=== PATIENT | female | born 2000 | race Caucasian/White ===

== ENCOUNTER → 2023-12-10 | Outpatient (CLI) | payer OTHER ==
[2023-12-10 11:33] LABS: Basophils # (auto) 0.1 10 ^3/uL (0-0.2); Basophils % (auto) 0.8 % (0.0-2.0); Eosinophils # (auto) 0.1 10 ^3/uL (0-0.8); Eosinophils % (auto) 0.7 % (0.0-7.0); Hematocrit 39.9 % (36.0-46.0); Hemoglobin 13.5 g/dL (12.2-16.2); Lymphocytes # (auto) 1.6 10 ^3/uL (0.4-5.4); Lymphocytes % (auto) 18.1 % (10.0-50.0); Mean Corpuscular Hemoglobin 29.4 pg (28.0-32.0); Mean Corpuscular Hgb Conc. 33.9 g/dL (32.0-36.0); Mean Corpuscular Volume 86.7 fL (80.0-100.0); Monocytes # (auto) 0.7 10 ^3/uL (0-1.3); Neutrophils # (auto) 6.5 10 ^3/uL (1.6-8.6); Neutrophils % (auto) 72.4 % (37.0-80.0); Nucleated Red Blood Cells % 0.1 %; Red Cell Distribution Width 14.7 % (11.8-14.3)
[2023-12-11 07:07] LABS: RPR Non Reactive (Non Reactive)
[2023-12-11 23:06] LABS: Chlamydia Trachomatis, NAA Negative (Negative); Neisseria gonorrhoeae, NAA Negative (Negative)
== END | disposition home or self-care (01) ==
LOC: LAB 11:09
PROVIDERS: ATTEND Obstetrics & Gynecology
DX: Z11.3 Encounter for screening for infections with a predominantly sexual mode of transmission (principal)
CPT/HCPCS: 36415; 85025; 86592

== ENCOUNTER 2024-01-09 23:47 | Inpatient (IN) | payer OTHER ==
[~2024-01-09] VITALS: Ht 157.5 cm; Wt 78.5 kg
[2024-01-10 00:55] LABS: Fern Testing Negative
[2024-01-10] MEDS ORDERED: TERBUTALINE SULFATE 1 MG/ML 1ML VIAL SC PRN (01:30)
[2024-01-10] MEDS ORDERED: LIDOCAINE 2%HCL (LOCAL ANESTH.) INJ 20ML MDV IJ PRN (01:30)
[2024-01-10] MEDS ORDERED: BUTORPHANOL TARTRATE 2 MG/1 ML VIAL IV PRN ×2 (01:30)
[2024-01-10] MEDS ORDERED: miSOPROStol 50 MCG per PRE-CUT 1/2 TAB PO PRN (01:30)
[2024-01-10 02:04] LABS: Basophils # (auto) 0.1 10 ^3/uL (0-0.2); Basophils % (auto) 0.6 % (0.0-2.0); Eosinophils # (auto) 0.1 10 ^3/uL (0-0.8); Eosinophils % (auto) 0.9 % (0.0-7.0); Hematocrit 42.5 % (36.0-46.0); Hemoglobin 14.6 g/dL (12.2-16.2); Lymphocytes # (auto) 2.5 10 ^3/uL (0.4-5.4); Lymphocytes % (auto) 26.7 % (10.0-50.0); Mean Corpuscular Hemoglobin 29.7 pg (28.0-32.0); Mean Corpuscular Hgb Conc. 34.2 g/dL (32.0-36.0); Mean Corpuscular Volume 86.8 fL (80.0-100.0); Monocytes # (auto) 0.8 10 ^3/uL (0-1.3); Monocytes % (auto) 8.2 % (0.0-12.0); Neutrophils # (auto) 5.9 10 ^3/uL (1.6-8.6); Neutrophils % (auto) 63.6 % (37.0-80.0); Nucleated Red Blood Cells % 0.1 %; Red Blood Cells 4.89 10^6/uL (4.0-5.20); Red Cell Distribution Width 14.4 % (11.8-14.3); White Blood Cell 9.3 10^3/uL (4.4-10.8)
[2024-01-10 02:15] LABS: Urine Bacteria NONE SEEN /hpf (None Seen); Urine Blood 2+ /uL (Negative); Urine Budding Yeast MODERATE /hpf (None Seen); Urine Clarity HAZY (Clear); Urine Protein, UAD Negative (Negative); Urine Specific Gravity 1.015 (1.001-1.035); Urine Urobilinogen Normal (Negative); Urine WBC 17 /hpf (0 - 5)
[2024-01-10 02:17] LABS: Urine Color Straw (Yellow)
[2024-01-10 02:21] LABS: INR 0.95 (0.9-1.15); Partial Thromboplastin Time 32.7 SEC (24.5-34.5)
[2024-01-10 02:26] LABS: Amphetamine Screen, Urine Neg (NEGATIVE); Barbiturate Scree,Urine Neg (NEGATIVE); Benzodiazephine Screen, Urine Neg (NEGATIVE); Cannabinoid Screen, Urine Neg (NEGATIVE); Cocaine Screen, Urine Neg (NEGATIVE); Opiate Scree,Urine Neg (NEGATIVE); Phencyclidine Screen, Urine Neg (NEGATIVE)
[2024-01-10 02:31] LABS: Albumin 4.1 g/dL (3.2-4.8); Alkaline Phosphatase 148 U/L (46-116); Anion Gap 9 (5-15); Aspartate Aminotransferase 16 U/L (13-40); Bilirubin, Total 0.5 mg/dL (0.2-1.0); Blood Urea Nitrogen 6 mg/dL (9-23); Calcium 9.3 mg/dL (8.7-10.4); Carbon Dioxide 22 mmol/L (20-30); Chloride 106 mmol/L (98-107); Glucose 93 mg/dL (74-106); Potassium 3.8 mmol/L (3.5-5.1); Sodium 137 mmol/L (136-145); Total Protein 6.7 g/dL (5.7-8.2)
[2024-01-10] MEDS: LACTATED RINGER'S 1,000 ML IV SCH (02:37)
[2024-01-10 02:54] LABS: Alanine Aminotransferase < 9 U/L (7-40)
[2024-01-10] MEDS: WITCH HAZEL-GLYCERIN PAD TOP PRN (03:39)
[2024-01-10] MEDS: DERMOPLAST 60ML BOTTLE TOP PRN (03:39)
[2024-01-10] MEDS: PHISODERM TOP SOLN 240ML BTL TOP PRN (03:39)
[2024-01-10] MEDS ORDERED: ePHEDrine SULFATE 50 MG/ML AMP IV ONE (04:00)
[2024-01-10] MEDS ORDERED: NALOXONE HCL 0.4 MG/ML VIAL IV ONE (04:00)
[2024-01-10] MEDS: LACTATED RINGER'S 1,000 ML IV ONE (04:57)
[2024-01-10] MEDS ORDERED: PREN27TA7 OR (05:43)
[2024-01-10] MEDS: ROPIVACAINE HCL 200 ML ONE ×2 (10:19→21:08)
[2024-01-10] MEDS: SODIUM CHLORIDE 0.9% 200 ML IUPC ONE (11:46)
[2024-01-10] MEDS: SODIUM CHLORIDE 0.9% 1,000 ML IUPC SCH (11:46)
[2024-01-10] MEDS: LACT. RINGERS/OXYTOCIN 20UNITS 1,000 ML IV SCH (15:11)
[2024-01-10] MEDS: ceFAZolin 1GM/50ML 50 ML IV SCH (16:34)
[2024-01-10] MEDS: LACT. RINGERS/OXYTOCIN 20UNITS 500 ML IV ONE ×2 (17:59→21:07)
[2024-01-10] MEDS: METHYLERGONOVINE MALEATE 0.2 MG/ML AMP IM ONE ×2 (18:12→21:08)
[2024-01-10] MEDS: miSOPROStol 100 mcg TAB PR PRN (18:12)
[2024-01-10] MEDS: miSOPROStol 100 mcg TAB SL PRN (18:13)
[2024-01-10] MEDS ORDERED: ONDANSETRON ODT 4 MG TAB PO PRN (19:45)
[2024-01-10] MEDS ORDERED: ACETAMINOPHEN 325 MG TAB PO PRN (19:45)
[2024-01-10 20:45] VITALS: BP 128/76; PULSE 72; RESP 20; TEMP 98.6; O2SAT 98
[2024-01-10] MEDS: IBUPROFEN 600 MG TAB PO PRN (20:46)
[2024-01-10] MEDS: miSOPROStol 100 mcg TAB ONE (21:08)
[2024-01-10] MEDS: DOCUSATE SOD 100 MG CAP PO SCH (22:38)
[2024-01-10 23:00] VITALS: BP 103/56; PULSE 90; RESP 16; TEMP 98.7; O2SAT 97
[2024-01-11 03:00] VITALS: BP 104/62; PULSE 86; RESP 16; TEMP 98.6; O2SAT 96
[2024-01-11 07:00] VITALS: BP 105/60; PULSE 86; RESP 16; TEMP 98.7; O2SAT 97
[2024-01-11 11:00] VITALS: BP 106/56; PULSE 89; RESP 17; TEMP 98.3; O2SAT 97
[2024-01-11 15:00] VITALS: BP 106/64; PULSE 89; RESP 17; TEMP 97.8; O2SAT 98
[2024-01-11 19:25] VITALS: BP 108/56; PULSE 67; RESP 18; TEMP 98; O2SAT 100
[2024-01-11 23:00] VITALS: BP 108/64; PULSE 68; RESP 20; TEMP 98.7; O2SAT 96
[2024-01-12 03:00] VITALS: BP 100/50; PULSE 70; RESP 18; TEMP 97.8; O2SAT 98
[2024-01-12 07:00] VITALS: BP 106/70; PULSE 75; RESP 16; TEMP 98.7; O2SAT 96
[2024-01-13 06:06] LABS: RPR Non Reactive (Non Reactive)
[2024-01-13 18:06] LABS: Treponema pallidum Ab (FTA-Ab) Non Reactive (Non Reactive)
== END 2024-01-12 09:22 | disposition home or self-care (01) | DRG 807 ==
LOC: LDRP 23:47 → OBSVTOIN 01-10 01:19 → LDRP 01-10 04:09
PROVIDERS: ADMIT Obstetrics & Gynecology; ATTEND Obstetrics & Gynecology
PROC: 10E0XZZ Delivery of Products of Conception, External Approach (ICD-10-PCS; principal; 2024-01-10)
PROC: 0KQM0ZZ Repair Perineum Muscle, Open Approach (ICD-10-PCS; 2024-01-10)
PROC: 10H07YZ Insertion of Other Device into Products of Conception, Via Natural or Artificial Opening (ICD-10-PCS; 2024-01-10)
PROC: 3E0R3BZ Introduction of Anesthetic Agent into Spinal Canal, Percutaneous Approach (ICD-10-PCS; 2024-01-10)
PROC: 00HU33Z Insertion of Infusion Device into Spinal Canal, Percutaneous Approach (ICD-10-PCS; 2024-01-10)
DX: O42.92 Full-term premature rupture of membranes, unspecified as to length of time between rupture and onset of labor (principal); Z37.0 Single live birth; O70.1 Second degree perineal laceration during delivery; O77.0 Labor and delivery complicated by meconium in amniotic fluid; Z3A.39 39 weeks gestation of pregnancy; Z91.018 Allergy to other foods
CPT/HCPCS: 36415; 59025; 59409; 62282; 76815; 80053; 80307; 81001; 84112; 85025; 85610; 85730; 86592; 86850; 86900; 86901; 94760; 96360; 96361; 96365; 96366; 96372; G0378; J2590

== ENCOUNTER 2025-04-21 11:32 | Observation (INO) | payer OTHER ==
[~2025-04-21] VITALS: Ht 157.5 cm; Wt 70.8 kg
[~2025-04-21 11:32] MED LIST: PREN27TA7 OR
--- NOTE | 2025-04-21 12:53 | DVH ---
BIOPHYSICAL PROFILE HISTORY: GDMA Comparison Study: None TECHNIQUE: Multiple real-time grayscale sonographic images through the gravid uterus of the fetus wi th duplex Doppler color flow and M-mode spectral analysis FINDINGS: BIOPHYSICAL PROFILE: breathing score: 2 movement score: 2 tone score: 2 Quantitative EULA score: 2 (EULA: 14.6 Cm.) Total score: 8 The cervix is not visualized Single live fetus in cephalic presentation. heart rate 149 beats per minute. Anterior placenta without previa or abruption IMPRESSION: Biophysical profile score: 8
--- NOTE | 2025-04-22 14:09 | DVHDS2 ---
Physician Discharge Progress N Final Diagnosis: gdm 35wks Operations or Procedures: Operations or Procedures nst reactive reviwed,sono Condition on Discharge: Good Disposition: Home Discharge Instructions: Diet: Consistent carbohydrate Activity: Light activity Medications: na Follow Up Care: Specialist: 1w Discharge Statement: "Patient was advised to return to the ER or call 911 if any headaches, dizziness, shortness of breath, chest pain, abdominal pain, bleeding, fevers, or worsening of medical condition. Patient was counseled about treatment plan, medications, possible side effects, patientverbalized understanding. All questions were answered to the best of my ability. This discharge took greater then 30 minutes in planning, reviewing documenta tion, counseling the patient, and discussing with other team members." Visit Coding OBGYN Date of Service: Apr 21, 2025 Billing Provider: UMANG OSORIO DO LABOR ARBITRATOR HEARING OFFICE Common Visit Codes: [id number] OBS CARE (HIGH) LABOR ARBITRATOR HEARING OFFICE Procedure Codes: 44346-39- NON-STRESS TEST UMANG OSORIO DO Apr 22, 2025 14:09
== END 2025-04-21 12:55 | disposition home or self-care (01) ==
LOC: LDRP 11:32 → UNDOADMOB 11:32 → LDRP 11:45 → UNDODISOB 12:55
PROVIDERS: ADMIT Obstetrics & Gynecology; ATTEND Obstetrics & Gynecology
DX: O24.419 Gestational diabetes mellitus in pregnancy, unspecified control (principal); Z3A.35 35 weeks gestation of pregnancy; Z79.899 Other long term (current) drug therapy
CPT/HCPCS: 76818; 81002; 82948; 94760; G0378; 59025; 76819

== ENCOUNTER 2025-04-28 07:53 | Observation (INO) | payer OTHER ==
--- NOTE | 2025-04-28 12:20 | DVH ---
BIOPHYSICAL PROFILE HISTORY: GDMA1 TECHNIQUE: Multiple transabdominal real-time grayscale sonographic images through the gravid uterus of the fetus with duplex Doppler color flow and M-mode spectral analysis FINDINGS: BIOPHYSICAL PROFILE: breathing score: 2 movement score: 2 tone score: 2 Quantitative EULA score: 2 (EULA: 17.3 Cm.) Total score: 8 The cervix not well visualized Single live fetus in cephalic presentation. heart rate 142 beats per minute. Anterior placenta without previa or abruption IMPRESSION: Biophysical profile score: 8
--- NOTE | 2025-04-28 15:07 | DVHDS2 ---
Physician Discharge Progress N Final Diagnosis: GDM 36WKS Operations or Procedures: Operations or Procedures NST REACTIVE REVIWED,SONO Condition on Discharge: Good Disposition: Home Discharge Instructions: Diet: Regular Activity: No Restrictions, As Tolerated Medications: NA Follow Up Care: Specialist: 1W Discharge Statement: "Patient was advised to return to the ER or call 911 if any headaches, dizziness, shortness of breath, chest pain, abdominal pain, bleeding, fevers, or worsening of medical condition. Patient was counseled about treatment plan, medications, possible side effects, patientverbalized understanding. All questions were answered to the best of my ability. This discharge took greater then 30 minutes in planning, reviewing documentat ion, counseling the patient, and discussing with other team members." Visit Coding OBGYN Date of Service: Apr 28, 2025 Billing Provider: UMANG OSORIO DO CHEF ASSISTANT Common Visit Codes: [id number] INP/OBS CARE (HIGH) CHEF ASSISTANT Procedure Codes: 33106-89- NON-STRESS TEST UMANG OSORIO DO Apr 28, 2025 15:07
== END 2025-04-28 13:00 | disposition home or self-care (01) ==
LOC: LDRP 10:52
PROVIDERS: ADMIT Obstetrics & Gynecology; ATTEND Obstetrics & Gynecology
DX: O24.419 Gestational diabetes mellitus in pregnancy, unspecified control (principal); Z3A.36 36 weeks gestation of pregnancy; Z79.899 Other long term (current) drug therapy; Z98.890 Other specified postprocedural states
CPT/HCPCS: 76818; 81002; 82948; G0378; 59025; 76819

== ENCOUNTER 2025-05-05 07:24 | Observation (INO) | payer OTHER ==
--- NOTE | 2025-05-05 09:47 | DVH ---
BIOPHYSICAL PROFILE HISTORY: GDMA1 TECHNIQUE: Multiple transabdominal real-time grayscale sonographic images through the gravid uterus of the fetus with duplex Doppler color flow and M-mode spectral analysis FINDINGS: BIOPHYSICAL PROFILE: breathing score: 2 movement score: 2 tone score: 2 Quantitative EULA score: 2 (EULA: 13.4 Cm.) Total score: 8 The cervix was not seen Single live fetus in cephalic presentation. heart rate 134 beats per minute. Grade II anterior placenta without previa or abruption IMPRESSION: Biophysical profile score: 8/8
--- NOTE | 2025-05-06 07:48 | DVHDS2 ---
Physician Discharge Progress N Final Diagnosis: gdm 37wks Operations or Procedures: Operations or Procedures nst reactive reviwed,sono Condition on Discharge: Good Disposition: Home Discharge Instructions: Diet: Consistent carbohydrate Activity: No Restrictions, As Tolerated Medications: na Follow Up Care: Specialist: 1w Discharge Statement: "Patient was advised to return to the ER or call 911 if any headaches, dizziness, shortness of breath, chest pain, abdominal pain, bleeding, fevers, or worsening of medical condition. Patient was counseled about treatment plan, medications, possible side effects, patientverbalized understanding. All questions were answered to the best of my ability. This discharge took greater then 30 minutes in planning, reviewing documentation, counseling the patient, and discussing with other team members." Visit Coding OBGYN Date of Service: May 05, 2025 Billing Provider: UMANG OSORIO DO OPHTHALMIC ASST Common Visit Codes: [id number] INP/OBS CARE (HIGH) OPHTHALMIC ASST Procedure Codes: 17033-74- NON-STRESS TEST UMANG OSORIO DO May 06, 2025 07:48
== END 2025-05-05 10:20 | disposition home or self-care (01) ==
LOC: LDRP 08:55
PROVIDERS: ADMIT Obstetrics & Gynecology; ATTEND Obstetrics & Gynecology
DX: O24.419 Gestational diabetes mellitus in pregnancy, unspecified control (principal); Z3A.37 37 weeks gestation of pregnancy; Z79.899 Other long term (current) drug therapy; Z98.890 Other specified postprocedural states
CPT/HCPCS: 76818; 81002; 82948; 82962; G0378; 59025; 76819

== ENCOUNTER 2025-05-12 01:58 | Observation (INO) | payer OTHER ==
--- NOTE | 2025-05-12 10:00 | DVH ---
CLINICAL HISTORY: Gestational diabetes COMPARISON: US BIOPHYSICAL PROFILE on DOS: 05/05/25, US BIOPHYSICAL PROFILE on DOS: 04/28/25, US BIOPHYS ICAL PROFILE on DOS: 04/21/25 TECHNIQUE: biophysical profile was performed. Transabdominal sonographic images of the fetus we re obtained. FINDINGS: The fetus is in cephalic position. heart rate measures 124 BPM. Amniotic fluid index measures 11.2 cm. The placenta is anterior in position without evidence of previa or abruption. Possi ble nuchal cord x1. BPP profile is an overall score of 8/8, with 2/2 points for breathing, with at least one episode of breathing over a 30 second duration during a 30 minute observation, 2/2 points for m ovements, with 3 or more discrete body or limb movements, 2/2 points for tone, with one or more episodes of extremity extension with return to flexion, or opening and closing of hand, and 2/ 2 points for amniotic fluid, with at least 1 pocket of amniotic fluid that measures 2 cm in 2 perpend icular planes. IMPRESSION: 1. BPP score of 8/8. 2. Possible nuchal cord.
[2025-05-12] MEDS ORDERED: CEPH250C PO (10:37)
--- NOTE | 2025-05-17 15:27 | DVHDS2 ---
Physician Discharge Progress N Final Diagnosis: gdm 38wks Operations or Procedures: Operations or Procedures nst raective candace dorman Condition on Discharge: Good Disposition: Home Discharge Instructions: Diet: Consistent carbohydrate Activity: No Restrictions, As Tolerated Medications: na Follow Up Care: Specialist: 3d Discharge Statement: "Patient was advised to return to the ER or call 911 if any headaches, dizziness, shortness of breath, chest pain, abdominal pain, bleeding, fevers, or worsening of medical condition. Patient was counseled about treatment plan, medications, possible side effects, patientverbalized understanding. All questions were answered to the best of my ability. This discharge took greater then 30 minutes in planning, reviewing documentation, counseling the patient, and discussing with other team members." Visit Coding OBGYN Date of Service: May 12, 2025 Billing Provider: UMANG OSORIO DO DESIGN ANALYST Common Visit Codes: [id number] OBS CARE (HIGH) DESIGN ANALYST Procedure Codes: 23383-97- NON-STRESS TEST UMANG OSORIO DO May 17, 2025 15:27
== END 2025-05-12 10:58 | disposition home or self-care (01) ==
LOC: LDRP 08:58
PROVIDERS: ADMIT Obstetrics & Gynecology; ATTEND Obstetrics & Gynecology
DX: O24.419 Gestational diabetes mellitus in pregnancy, unspecified control (principal); Z3A.38 38 weeks gestation of pregnancy; Z79.899 Other long term (current) drug therapy; Z98.890 Other specified postprocedural states
CPT/HCPCS: 76818; 81002; 82948; 82962; 94760; G0378; 59025; 76819

== ENCOUNTER 2025-05-14 23:17 | Observation (INO) | payer OTHER ==
[~2025-05-14 23:17] MED LIST changes: +CEPH250C PO
== END 2025-05-15 00:38 | disposition home or self-care (01) ==
LOC: LDRP 23:17
PROVIDERS: ADMIT Obstetrics & Gynecology; ATTEND Obstetrics & Gynecology
DX: O62.9 Abnormality of forces of labor, unspecified (principal); Z3A.38 38 weeks gestation of pregnancy; Z79.899 Other long term (current) drug therapy; Z98.890 Other specified postprocedural states
CPT/HCPCS: 59025; 81002; 82948; 82962; 94760; G0378

== ENCOUNTER 2025-05-15 02:13 | Inpatient (IN) | payer OTHER ==
[~2025-05-15] VITALS: Ht 157.5 cm; Wt 68.0 kg
[2025-05-15] MEDS ORDERED: NALBUPHINE HCL 10 MG/1ml INJECTION IV PRN (03:15)
[2025-05-15] MEDS ORDERED: PENICILLIN G POT 5MIL/D5 50ML 50 ML IV ONE (03:15)
[2025-05-15] MEDS: LACTATED RINGER'S 1,000 ML IV ONE (03:30)
[2025-05-15] MEDS ORDERED: NALOXONE HCL 0.4 MG/ML VIAL IV ONE (03:30)
[2025-05-15] MEDS: fentaNYL CITRATE 100 MCG/2 ML VL IV ONE (03:30)
[2025-05-15 03:48] LABS: Mean Corpuscular Volume 78.7 fL (80.0-100.0)
[2025-05-15 03:50] LABS: Hematocrit 40.2 % (36.0-46.0); Hemoglobin 13.8 g/dL (12.2-16.2); Mean Corpuscular Hemoglobin 27.1 pg (28.0-32.0); Nucleated Red Blood Cells % 0.1 %
[2025-05-15 04:07] LABS: Alanine Aminotransferase 17 U/L (7-40); Albumin 4.4 g/dL (3.2-4.8); Anion Gap 13 (5-15); BUN/Creatinine Ratio 23.9 (10.0-20.0); Bilirubin, Total 0.6 mg/dL (0.2-1.0); Blood Urea Nitrogen 11 mg/dL (9-23); Calcium 9.2 mg/dL (8.7-10.4); Chloride 105 mmol/L (98-107); Glucose 103 mg/dL (74-106); Sodium 137 mmol/L (136-145); Total Protein 7.0 g/dL (5.7-8.2)
[2025-05-15 04:09] LABS: Alkaline Phosphatase 186 U/L (46-116); Carbon Dioxide 19 mmol/L (20-31); Potassium 3.4 mmol/L (3.5-5.1)
[2025-05-15] MEDS: DERMOPLAST 60ML BOTTLE TOP PRN (04:15)
[2025-05-15] MEDS: WITCH HAZEL-GLYCERIN PAD TOP PRN (04:15)
[2025-05-15] MEDS: PHISODERM TOP SOLN 240ML BTL TOP PRN (04:15)
[2025-05-15] MEDS: LACT. RINGERS/OXYTOCIN 20UNITS 500 ML IV ONE ×2 (04:16)
[2025-05-15 04:17] LABS: INR 0.95 (0.9-1.15); Partial Thromboplastin Time 30.3 SEC (24.5-34.5); Prothrombin Time 10.1 sec (9.3-11.8)
[2025-05-15] MEDS: LACTATED RINGER'S 1,000 ML IV SCH (04:17)
[2025-05-15 04:21] LABS: Urine Protein, UAD Negative (Negative)
[2025-05-15] MEDS: LIDOCAINE 2%HCL (LOCAL ANESTH.) INJ 20ML MDV ONE (04:23)
[2025-05-15 04:25] LABS: Amphetamine Screen, Urine Neg (NEGATIVE); Barbiturate Scree,Urine Neg (NEGATIVE); Benzodiazephine Screen, Urine Neg (NEGATIVE); Cannabinoid Screen, Urine Neg (NEGATIVE); Cocaine Screen, Urine Neg (NEGATIVE); Opiate Scree,Urine Neg (NEGATIVE); Phencyclidine Screen, Urine Neg (NEGATIVE)
[2025-05-15] MEDS ORDERED: ACETAMINOPHEN 325 MG TAB PO PRN (05:45)
[2025-05-15] MEDS: IBUPROFEN 600 MG TAB PO PRN (06:25)
[2025-05-15 06:30] VITALS: BP 111/64; PULSE 60; RESP 18; TEMP 98.4; O2SAT 96
[2025-05-15] MEDS: LIDOCAINE 2%HCL (LOCAL ANESTH.) INJ 20ML MDV IJ PRN (06:56)
[2025-05-15] MEDS ORDERED: PENICILLIN G POTASSIUM 2,500,000 UNITS in D5W 5% 50 ML IV SCH (07:15)
--- NOTE | 2025-05-15 08:18 | DVHHP2 ---
Chief Complaints Chief Complaints Patient had been seen prior in the day for labor check went home and came back essentially complete delivered less than 30 minutes later. Patient has a ROM clear loose nuchal cord x1 clear amniotic fluid had a first-degree posterior vaginal laceration repaired. Female Apgars 8 and 9. History of Present Complaints History of Present Complaints Excellent care GDM A1. Group B strep positive Past Medical History Past Medical History No significant contributory past medical history Past Surgical History Noncontributory OB History OB History OB History Good care Allergies and Medications Allergies: Coded Allergies: Pineapple (Verified Allergy, Intermediate, 01/10/24) Avocado (Verified Allergy, Mild, 01/10/24) [place]field (Verified Allergy, Mild, 01/10/24) Banana (Verified Allergy, Unknown, 01/10/24) Uncoded Allergies: watermelon (Allergy, Mild, 01/10/24) Home Meds Reported Medications Cephalexin (KEFLEX CAPSULE) 250 Mg Cp, 500 MG PO Q6HR 05/12/25 Vit W/ Ferrous Fumara () 1 Tab Tab, 1 TAB OR, TAB 01/10/24 Current Medications Current Medications Medications (Trade) Dose Ordered Sig/Marina Route PRN Reason Start Time Stop Time Status Last Admin Lactated Ringer's 1,000 ml @ 125 mls/hr Q8H IV 05/15/25 03:15 05/15/25 07:51 DC 05/15/25 04:17 Nalbuphine HCl (Nubain) 10 mg Q4HP PRN IV MODERATE PAIN (4-6 PAIN SCALE) 05/15/25 03:15 05/15/25 07:51 DC Penicillin G Potassium [id number] units/Dextrose 50 ml @ 100 mls/hr Q4H IV 05/15/25 07:15 05/15/25 07:51 DC Abbey Nevaeh (Tucks) 1 pad PRN PRN TOP PERINEAL AREA DISCOMFORT 05/15/25 03:15 05/15/25 04:15 Sodium Lauryl Sulfate (Phisoderm) 240 ml PRN PRN TOP PERINEAL AREA DISCOMFORT 05/15/25 03:15 05/15/25 04:15 Benzocaine (Dermoplast) 1 applic PRN PRN TOP PERINEAL AREA DISCOMFORT 05/15/25 03:15 05/15/25 04:15 Ibuprofen (Motrin Tablet) 600 mg Q6HP PRN PO MODERATE PAIN (4-6 PAIN SCALE) 05/15/25 05:45 05/15/25 06:25 Acetaminophen (Tylenol Tablet) 650 mg Q4HP PRN PO MILD PAIN (1-3 PAIN SCALE) 05/15/25 05:45 Lidocaine HCl (Xylocaine) 20 ml ONCE PRN IJ PERINEAL AREA DISCOMFORT 05/15/25 06:45 05/15/25 07:51 DC Family & Social History Social History Afebrile vital signs stable lungs clear heart rate and rhythm regular no significant drugs Review of Systems Review of Systems No significant change in review of systems neuro endocrine musculoskeletal cord, pulmonary no history OB Admission Exam Vitals Vitals: Vital Signs Date Time Temp Pulse Resp B/P (MAP) Pulse Ox O2 Delivery O2 Flow Rate FiO2 05/15/25 06:30 98.4 60 18 111/64 (80) 96 98.4 05/15/25 06:30 Room Air Physical Exam Alert awake oriented x3 afebrile vital signs stable extremely anxiety screaming because of contraction pain requesting epidural but no time. Patient pushed maybe 3 4 times and delivered precipitously. Assessment/Plan Assessment Assessment Active labor complete 3+ station from group B positive rubella immune syphilis immune TP p.a. negative O-positive blood type RhoGAM obviously not given HIV negative rubella no hepatitis negative Admitting Diagnosis: LABOR Plan Plan: First-degree posterior vaginal laceration repaired. Visit Coding OBGYN Date of Service: May 15, 2025 Billing Provider: DAVONTE PALMA DO MANAGER FINANCIAL PLANNING Common Visit Codes: 35023-HJK/OBS SAME DATE (HIGH) MANAGER FINANCIAL PLANNING Procedure Codes: [id number] DEL INCLUDING DAVONTE PALMA DO May 15, 2025 08:17
--- NOTE | 2025-05-15 08:35 | LDN2 ---
Labor and Delivery Note Date 05/15/25 Age 24 2 Para 2 AB 0 EDC May 25, 2025 EGA 39 weeks Diagnosis Active labor immediate precipitous delivery Vaginal Delivery: VTX Vacuum Assisted: No Placenta: Spontaneous Sex: Female Weight Pending Apgars 8 9 Nuchal Cord Transected: Yes (Loose reduced) Amniotic Fluid: Clear Anesthesia None Episiotomy: No Extension: Yes (First-degree posterior vaginal) EBL 300 cc Labs Blood Bank 05/15/25 03:28: Blood Type O POSITIVE Complications None Conditions Stable to improved Loan Coordinator None present Visit Coding OBGYN Date of Service: May 15, 2025 Billing Provider: DAVONTE PALMA DO DIAMOND MOUNTER Common Visit Codes: 37642-HOA/OBS SAME DATE (HIGH) DIAMOND MOUNTER Procedure Codes: 99766-FIL DEL INCLUDING DAVONTE PALMA DO May 15, 2025 08:35
[2025-05-15 11:00] VITALS: BP 111/62; PULSE 76; RESP 18; TEMP 98.6; O2SAT 96
[2025-05-15 14:59] VITALS: BP 98/72; PULSE 72; RESP 18; TEMP 98.3; O2SAT 96
[2025-05-15 19:00] VITALS: BP 130/80; PULSE 83; RESP 16; TEMP 98.1; O2SAT 98
[2025-05-15 23:00] VITALS: BP 139/62; PULSE 69; RESP 16; TEMP 98.8; O2SAT 97
--- NOTE | 2025-05-15 23:23 | DVHDS2 ---
Discharge Summary Date of Admission May 15, 2025 at 03:08 Date of Discharge: May 15, 2025 Admitting Diagnosis contractions 38 + weeks Labs/Diagnostic Data: Laboratory Results Test 05/15/25 03:28 05/15/25 02:50 White Blood Count 9.5 10^3/uL (4.4-10.8) Red Blood Count 5.11 10^6/uL (4.0-5.20) Hemoglobin 13.8 g/dL (12.2-16.2) Hematocrit 40.2 % (36.0-46.0) Mean Corpuscular Volume 78.7 fL (80.0-100.0) Mean Corpuscular Hemoglobin 27.1 pg (28.0-32.0) Mean Corpuscular Hemoglobin Concent 34.4 g/dL (32.0-36.0) Red Cell Distribution Width 14.6 % (11.8-14.3) Platelet Count 245 10^3/uL (140-450) Mean Platelet Volume 8.6 fL (6.9-10.8) Neutrophils (%) (Auto) 72.4 % (37.0-80.0) Lymphocytes (%) (Auto) 21.7 % (10.0-50.0) Monocytes (%) (Auto) 4.5 % (0.0-12.0) Eosinophils (%) (Auto) 0.5 % (0.0-7.0) Basophils (%) (Auto) 0.9 % (0.0-2.0) Neutrophils # (Auto) 6.9 10 ^3/uL (1.6-8.6) Lymphocytes # (Auto) 2.1 10 ^3/uL (0.4-5.4) Monocytes # (Auto) 0.4 10 ^3/uL (0-1.3) Eosinophils # (Auto) 0 10 ^3/uL (0-0.8) Basophils # (Auto) 0.1 10 ^3/uL (0-0.2) Nucleated Red Blood Cells 0.1 % Prothrombin Time 10.1 sec (9.3-11.8) Prothrombin Time INR 0.95 (0.9-1.15) Activated Partial Thromboplast Time 30.3 SEC (24.5-34.5) Sodium Level 137 mmol/L (136-145) Potassium Level 3.4 mmol/L (3.5-5.1) Chloride Level 105 mmol/L (98-107) Carbon Dioxide Level 19 mmol/L (20-31) Anion Gap 13 (5-15) Blood Urea Nitrogen 11 mg/dL (9-23) Creatinine 0.46 mg/dL (0.550-1.02) Glomerular Filtration Rate Calc 137 mL/min (>90) BUN/Creatinine Ratio 23.9 (10.0-20.0) Serum Glucose 103 mg/dL (74-106) Calcium Level 9.2 mg/dL (8.7-10.4) Total Bilirubin 0.6 mg/dL (0.2-1.0) Aspartate Amino Transferase (AST) 20 U/L (13-40) Alanine Aminotransferase (ALT) 17 U/L (7-40) Alkaline Phosphatase 186 U/L (46-116) Total Protein 7.0 g/dL (5.7-8.2) Albumin 4.4 g/dL (3.2-4.8) Treponema pallidum Antibody Non-reactive (Negative) Hepatitis C Antibody Negative (Negative) Urine Color Light-yellow (Yellow) Urine Clarity Clear (Clear) Urine pH 6.5 (5.0-9.0) Urine Specific [place] 1.021 (1.001-1.035) Urine Protein Negative (Negative) Urine Ketones 1+ (Negative) Urine Blood Trace /uL (Negative) Urine Nitrite Negative (Negative) Urine Bilirubin Negative (Negative) Urine Urobilinogen Normal mg/dL (Negative) Urine Leukocyte Esterase 2+ /uL (Negative) Urine RBC <1 /hpf (0 - 4) Urine Microscopic WBC 11 /HPF (0-5) Urine Squamous Epithelial Cells Few /hpf (<5) Urine Bacteria None seen /hpf (None Seen) Urine Glucose Normal mg/dL (Normal) Urine Opiates Screen Neg (NEGATIVE) Urine Fentanyl Screen Neg (NEGATIVE) Urine Barbiturates Screen Neg (NEGATIVE) Urine Phencyclidine Screen Neg (NEGATIVE) Urine Amphetamines Screen Neg (NEGATIVE) Urine Benzodiazepines Screen Neg (NEGATIVE) Urine Cocaine Screen Neg (NEGATIVE) Urine Cannabinoids Screen Neg (NEGATIVE) Other Laboratory Tests 05/15/25 03:28 Brief Hx & Hospital Course: no active labor 38 week NST performed reactive Condition at Discharge: Good Final Diagnosis/Problems List 38 weeks contractions Discharge Disposition: Home Discharge Instruct/Medications Scheduled Cephalexin (Keflex Capsule), 500 MG PO Q6HR, (Reported) Miscellaneous Medications Vit W/ Ferrous Fumara (), 1 TAB OR, (Reported) Discharge Statement: "Patient was advised to return to the ER or call 911 if any headaches, dizziness, shortness of breath, chest pain, abdominal pain, bleeding, fevers, or worsening of medical condition. Patient was counseled about treatment plan, medications, possible side effects, patientverbalized understanding. All questions were answered to the best of my ability. This discharge took greater then 30 minutes in planning, reviewing documentation, counseling the patient, and discussing with other team members." ASSESSMENT ASSESSMENT Assessment Visit Coding OBGYN Date of Service: May 14, 2025 Billing Provider: DAVONTE PALMA DO MICROPALEONTOLOGIST Common Visit Codes: [id number] INP/OBS CARE(HIGH), 71393-BAG/OBS SAME DATE (LOW), 07888-CPY/OBS SAME DATE (MOD) MICROPALEONTOLOGIST Procedure Codes: 48819-36- NON-STRESS TEST DAVONTE PALMA DO May 15, 2025 23:23
[2025-05-16 03:00] VITALS: BP 136/80; PULSE 68; RESP 18; TEMP 98.3; O2SAT 97
[2025-05-16 06:30] VITALS: BP 114/65; PULSE 71; RESP 15; TEMP 98.6; O2SAT 99
--- NOTE | 2025-05-16 06:54 | DVHPN2 ---
Chief Complaints Patient reports: No new complaints, Feels better Nursing reports: No new complaints, No abdominal pain, No chest pain, No dizziness, No cough Objective Vitals Vital Signs Date Time Temp Pulse Resp B/P (MAP) Pulse Ox O2 Delivery O2 Flow Rate FiO2 05/16/25 03:00 98.3 68 18 136/80 (98) 97 98.3 05/15/25 19:00 Room Air General: Normal Neck: Normal Lungs: Normal Cardiovascular: Normal Abdominal: Normal (uterus 12 week size) Extremities: Normal Skin: Normal Studies Laboratory Tests 05/15/25 03:28 Test 05/15/25 03:28 Range/Units Serum Glucose 103 74-106 mg/dL Ass/Plan Assessment PPD #1 stable improved Plan See DC summary See DC orders DAVONTE PALMA DO May 16, 2025 06:54
--- NOTE | 2025-05-16 06:57 | DVHDS2 ---
Discharge Summary Date of Admission May 15, 2025 at 03:08 Date of Discharge: May 15, 2025 Admitting Diagnosis labor Labs/Diagnostic Data: Laboratory Results Test 05/15/25 03:28 05/15/25 02:50 White Blood Count 9.5 10^3/uL (4.4-10.8) Red Blood Count 5.11 10^6/uL (4.0-5.20) Hemoglobin 13.8 g/dL (12.2-16.2) Hematocrit 40.2 % (36.0-46.0) Mean Corpuscular Volume 78.7 fL (80.0-100.0) Mean Corpuscular Hemoglobin 27.1 pg (28.0-32.0) Mean Corpuscular Hemoglobin Concent 34.4 g/dL (32.0-36.0) Red Cell Distribution Width 14.6 % (11.8-14.3) Platelet Count 245 10^3/uL (140-450) Mean Platelet Volume 8.6 fL (6.9-10.8) Neutrophils (%) (Auto) 72.4 % (37.0-80.0) Lymphocytes (%) (Auto) 21.7 % (10.0-50.0) Monocytes (%) (Auto) 4.5 % (0.0-12.0) Eosinophils (%) (Auto) 0.5 % (0.0-7.0) Basophils (%) (Auto) 0.9 % (0.0-2.0) Neutrophils # (Auto) 6.9 10 ^3/uL (1.6-8.6) Lymphocytes # (Auto) 2.1 10 ^3/uL (0.4-5.4) Monocytes # (Auto) 0.4 10 ^3/uL (0-1.3) Eosinophils # (Auto) 0 10 ^3/uL (0-0.8) Basophils # (Auto) 0.1 10 ^3/uL (0-0.2) Nucleated Red Blood Cells 0.1 % Prothrombin Time 10.1 sec (9.3-11.8) Prothrombin Time INR 0.95 (0.9-1.15) Activated Partial Thromboplast Time 30.3 SEC (24.5-34.5) Sodium Level 137 mmol/L (136-145) Potassium Level 3.4 mmol/L (3.5-5.1) Chloride Level 105 mmol/L (98-107) Carbon Dioxide Level 19 mmol/L (20-31) Anion Gap 13 (5-15) Blood Urea Nitrogen 11 mg/dL (9-23) Creatinine 0.46 mg/dL (0.550-1.02) Glomerular Filtration Rate Calc 137 mL/min (>90) BUN/Creatinine Ratio 23.9 (10.0-20.0) Serum Glucose 103 mg/dL (74-106) Calcium Level 9.2 mg/dL (8.7-10.4) Total Bilirubin 0.6 mg/dL (0.2-1.0) Aspartate Amino Transferase (AST) 20 U/L (13-40) Alanine Aminotransferase (ALT) 17 U/L (7-40) Alkaline Phosphatase 186 U/L (46-116) Total Protein 7.0 g/dL (5.7-8.2) Albumin 4.4 g/dL (3.2-4.8) Treponema pallidum Antibody Non-reactive (Negative) Hepatitis C Antibody Negative (Negative) Urine Color Light-yellow (Yellow) Urine Clarity Clear (Clear) Urine pH 6.5 (5.0-9.0) Urine Specific [place] 1.021 (1.001-1.035) Urine Protein Negative (Negative) Urine Ketones 1+ (Negative) Urine Blood Trace /uL (Negative) Urine Nitrite Negative (Negative) Urine Bilirubin Negative (Negative) Urine Urobilinogen Normal mg/dL (Negative) Urine Leukocyte Esterase 2+ /uL (Negative) Urine RBC <1 /hpf (0 - 4) Urine Microscopic WBC 11 /HPF (0-5) Urine Squamous Epithelial Cells Few /hpf (<5) Urine Bacteria None seen /hpf (None Seen) Urine Glucose Normal mg/dL (Normal) Urine Opiates Screen Neg (NEGATIVE) Urine Fentanyl Screen Neg (NEGATIVE) Urine Barbiturates Screen Neg (NEGATIVE) Urine Phencyclidine Screen Neg (NEGATIVE) Urine Amphetamines Screen Neg (NEGATIVE) Urine Benzodiazepines Screen Neg (NEGATIVE) Urine Cocaine Screen Neg (NEGATIVE) Urine Cannabinoids Screen Neg (NEGATIVE) Other Laboratory Tests 05/15/25 03:28 Brief Hx & Hospital Course: Active labor 38 week NST performed reactive Condition at Discharge: Good Final Diagnosis/Problems List s/p stable Discharge Disposition: Home Discharge Instruct/Medications Diet: Regular Scheduled Cephalexin (Keflex Capsule), 500 MG PO Q6HR, (Reported) Miscellaneous Medications Vit W/ Ferrous Fumara (), 1 TAB OR, (Reported) Discharge Statement: "Patient was advised to return to the ER or call 911 if any headaches, dizziness, shortness of breath, chest pain, abdominal pain, bleeding, fevers, or worsening of medical condition. Patient was counseled about treatment plan, medications, possible side effects, patientverbalized understanding. All questions were answered to the best of my ability. This discharge took greater then 30 minutes in planning, reviewing documentation, counseling the patient, and discussing with other team members." ASSESSMENT ASSESSMENT Hospital Course no active labor 38 week NST performed reactive Assessment 38 weeks contractions Visit Coding OBGYN Date of Service: May 16, 2025 Billing Provider: DAVONTE PALMA DO SUPERVISOR CEREAL Common Visit Codes: 13720-BZS/OBS SAME DATE (HIGH) SUPERVISOR CEREAL Procedure Codes: [id number]-[id number] DEL INCLUDING DAVONTE PALMA DO May 16, 2025 06:57
[2025-05-16 11:00] VITALS: BP 108/76; PULSE 65; RESP 16; TEMP 98.4; O2SAT 98
== END 2025-05-16 12:36 | disposition home or self-care (01) | DRG 807 ==
LOC: LDRP 02:13 → OBSVTOIN 03:08 → LDRP 08:32
PROVIDERS: ADMIT Obstetrics & Gynecology; ATTEND Obstetrics & Gynecology
PROC: 10E0XZZ Delivery of Products of Conception, External Approach (ICD-10-PCS; principal; 2025-05-15)
PROC: 0HQ9XZZ Repair Perineum Skin, External Approach (ICD-10-PCS; 2025-05-15)
DX: O69.81X0 Labor and delivery complicated by cord around neck, without compression, not applicable or unspecified (principal); Z37.0 Single live birth; O99.824 Streptococcus B carrier state complicating childbirth; O62.3 Precipitate labor; O70.0 First degree perineal laceration during delivery; Z3A.38 38 weeks gestation of pregnancy; Z91.018 Allergy to other foods; Z86.32 Personal history of gestational diabetes
CPT/HCPCS: 36415; 59025; 59409; 80053; 80307; 81001; 81002; 85025; 85610; 85730; 86780; 86803; 86850; 86900; 86901; 94760; 96360; 96365; 96366; G0378; J2540; J2590; J7060

== ENCOUNTER 2025-06-01 19:35 | Inpatient (IN) | payer OTHER ==
[~2025-06-01] VITALS: Ht 157.5 cm; Wt 64.0 kg
--- NOTE | 2025-06-01 19:44 | ED.PDOC ---
History of Present Illness HPI Comments This is a 24-year-old female who comes in with chief complaint of bilateral flank pain as well as epigastric pain. The patient states that the symptoms started approximately 1 hour ago. She rates the pain as a 10/10. She is status post vaginal delivery approximately two weeks ago here at [facility]. The patient denies any nausea, vomiting, dysuria or hematuria. 911 was called and the patient was transported to our facility. EN route, the patient's Accu-Chek was 90. Chief Complaint: Flank Pain Time Seen by MD: 19:37 Reviewed Notes: Nurses Notes, Hand Welt Butter Notes, Medications, Allergies (Allergies listed above) Allergies: Coded Allergies: Pineapple (Verified Allergy, Intermediate, 01/10/24) Avocado (Verified Allergy, Mild, 01/10/24) [place] (Verified Allergy, Mild, 01/10/24) Banana (Verified Allergy, Unknown, 01/10/24) Uncoded Allergies: watermelon (Allergy, Mild, 01/10/24) Home Meds Reported Medications Cephalexin (KEFLEX CAPSULE) 250 Mg Cp, 500 MG PO Q6HR 05/12/25 Vit W/ Ferrous Fumara () 1 Tab Tab, 1 TAB OR, TAB 01/10/24 Information Source: Patient, Emergency Med Personnel Mode of Arrival: EMS Severity: Moderate Timing: Hours Duration: Since onset Prehospital treatment: None Location: Epigastric pain and bilateral flank pain Associated signs and symptoms No associated nausea, vomiting or diarrhea but the patient is having some diaphoresis Past Medical History PAST MEDICAL HISTORY: Denies Surgical History: Tonsillectomy, Denies all surgeries MATERIAL REQUISITIONER History: No Pertinent MATERIAL REQUISITIONER History Family History Family History: No family hx of Cancer, No family hx of DM, No family hx of Heart casa, No family hx of HTN Social History Smoker: Non-Smoker Alcohol: Denies ETOH Use Drugs: Denies Drug Use Lives In: Home Constitutional: denies: chills, diaphoresis, fatigue, fever, malaise, sweats, weakness, others EENTM: denies: blurred vision, double vision, ear bleeding, ear discharge, ear drainage, ear pain, ear ringing, eye pain, eye redness, hearing loss, mouth pain , mouth swelling, nasal discharge, nose bleeding, nose congestion, nose pain, photophobia, tearing, throat pain, throat swelling, voice changes, others Respiratory: denies: cough, hemoptysis, orthopnea, SOB at rest, shortness of breath, SOB with excertion, stridor, wheezing, others Cardiovascular: denies: chest pain, dizzy spells, diaphoresis, Dyspnea on exertion, edema, irregular heart beat, left arm pain, lightheadedness, palpitations, PND, syncope, others Gastrointestinal: reports: abdominal pain; denies: abdomen distended, blood streaked bowels, constipated, diarrhea, dysphagia, difficulty swallowing, hematemesis, melena, nausea, poor appetite, poor fluid intake, rectal bleeding, rectal pain, vomiting, others Genitourinary: reports: flank pain; denies: abnormal vagina bleeding, burning, dyspareunia, dysuria, frequency, hematuria, incontinence, pain, , vagina discharge, urgency, others Neurological: denies: dizziness, fainting, headache, left sided numbness, left sided weakness, numbness, paresthesia, pre-existing deficit, right sided numbness, right sided weakness, seizure, speech problems, tingling, tremors, weakness, others Musculoskeletal: denies: back pain, gout, joint pain, joint swelling, muscle p ain, muscle stiffness, neck pain, others Integumetry: denies: bruises, change in color, change in hair/nails, dryness, laceration, lesions, lumps, rash, wounds, others Allergic/Immunocompromised: denies: Difficulty Healing, Frequent Infections, Hives, Itching, others Hematologic/Lymphatic: denies: anemia, blood clots, easy bleeding, easy bruising, swollen glands, others Endocrine: denies: excessive hunger, excessive sweating, excessive thirst, excessive urination, flushing, intolerance to cold, intolerance to heat, unexplained weight gain, unexplained weight loss, others Psychiatric: denies: anxiety, bipolar disorder, depression, hopeless, panic disorder, schizophrenia, sleepless, suicidal, others Physical Exam General Appearance: Moderate Distress HEENT: Normal ENT Inspection, Pharynx Normal, TMs Normal Neck: Full Range of Motion, Non-Tender, Normal, Normal Inspection Respiratory: Chest Non-Tender, Lungs Clear, No Accessory Muscle Use, No Respiratory Distress, Normal Breath Sounds Cardiovascular: No Edema, No JVD, No Murmur, No Gallop, Normal Peripheral Pulses, Regular Rate/Rhythm Breast Exam: Deferred Gastrointestinal: Epigastric, No Organomegaly, No Pulsatile Mass, Normal Bowel Sounds, Soft, Tenderness Genitalia: Deferred Pelvic: Deferred Rectal: Deferred Extremities: No calf tenderness, Normal capillary refill, Normal inspection, Normal range of motion, Non-tender, No pedal edema Musculoskeletal : Apperance: Normal Neurologic: Alert, electrotyper II-XII nml as Tested, No Motor Deficits, Normal Affect, Normal Mood, No Sensory Deficits Cerebellar Function: Normal Reflexes: Normal Skin: Dry, Normal Color, Warm Lymphatic: No Adenopathy Was a procedure done? Was a procedure done?: No Differential Dx Considerations may include: Generalized weakness, electrolyte imbalance, dehydration, UTI, gallstones X-Ray, Labs, Meds, VS Vital Signs Date Time Temp Pulse Resp B/P (MAP) Pulse Ox O2 Delivery O2 Flow Rate FiO2 06/01/25 20:41 69 18 96 Room Air 06/01/25 20:41 69 18 119/70 (86) 96 06/01/25 20:36 69 16 119/70 06/01/25 19:39 98.9 87 16 124/79 98 98.9 Lab Test 06/01/25 19:47 Range/Units White Blood Count 9.2 4.4-10.8 10^3/uL Red Blood Count 5.53 H 4.0-5.20 10^6/uL Hemoglobin 14.9 12.2-16.2 g/dL Hematocrit 44.5 36.0-46.0 % Mean Corpuscular Volume 80.5 80.0-100.0 fL Mean Corpuscular Hemoglobin 27.0 L 28.0-32.0 pg Mean Corpuscular Hemoglobin Concent 33.6 32.0-36.0 g/dL Red Cell Distribution Width 15.0 H 11.8-14.3 % Platelet Count 243 140-450 10^3/uL Mean Platelet Volume 7.9 6.9-10.8 fL Neutrophils (%) (Auto) 69.9 37.0-80.0 % Lymphocytes (%) (Auto) 22.5 10.0-50.0 % Monocytes (%) (Auto) 4.6 0.0-12.0 % Eosinophils (%) (Auto) 2.3 0.0-7.0 % Basophils (%) (Auto) 0.7 0.0-2.0 % Neutrophils # (Auto) 6.4 1.6-8.6 10 ^3/uL Lymphocytes # (Auto) 2.1 0.4-5.4 10 ^3/uL Monocytes # (Auto) 0.4 0-1.3 10 ^3/uL Eosinophils # (Auto) 0.2 0-0.8 10 ^3/uL Basophils # (Auto) 0.1 0-0.2 10 ^3/uL Nucleated Red Blood Cells 0.1 % Sodium Level Pending Potassium Level Pending Chloride Level Pending Carbon Dioxide Level Pending Anion Gap Pending Blood Urea Nitrogen Pending Creatinine Pending Glomerular Filtration Rate Calc Pending BUN/Creatinine Ratio Pending Serum Glucose Pending Calcium Level Pending Total Bilirubin Pending Aspartate Amino Transferase (AST) Pending Alanine Aminotransferase (ALT) Pending Alkaline Phosphatase Pending Total Protein Pending Albumin Pending Lipase Pending Current Medications Medications (Trade) Dose Ordered Sig/Marina Route Start Time Stop Time Status Last Admin Ondansetron HCl (Zofran) 4 mg ONCE ONCE IV 06/01/25 19:45 06/01/25 19:46 DC 06/01/25 20:37 Morphine Sulfate 4 mg ONCE ONCE IV 06/01/25 19:45 06/01/25 19:46 DC 06/01/25 20:36 IV Hep-Lock was established The patient was given morphine 4 mg IV push for the pain The patient was given Zofran 4 mg IV push for the nausea Cholelithiasis with mild gallbladder wall thickening and positive sonographic liz's sign is suggestive of acute cholecystitis. If further confirmation is needed, recommend a nuclear medicine hepatobiliary scan for further evaluation. The patient's CBC is within normal limits At this time the chemistry panel and liver enzymes are pending The patient is being admitted to the hospitalist The patient's diagnosis is acute cholecystitis Images Reviewed?: Images reviewed and evaluated by me Time of 1ST Reevaluation: 19:43 Reevaluation 1ST: Unchanged Patient Education/Counseling: Diagnosis, Treatment, Prognosis Family Education/Counseling: No Family Present SEPSIS Sepsis Screen Physician Orders Comprehensive Metabolic Panel (06/01/25 19:38) Lipase (06/01/25 19:38) Urinalysis (06/01/25 19:38) Heplock Iv (06/01/25 19:38) Gallbladder (06/01/25 19:38) Pantoprazole (Protonix) (06/01/25 21:00) Vital Signs Date Time Temp Pulse Resp B/P (MAP) Pulse Ox O2 Delivery O2 Flow Rate FiO2 06/01/25 20:41 69 18 96 Room Air 06/01/25 20:41 69 18 119/70 (86) 96 06/01/25 20:36 69 16 119/70 06/01/25 19:39 98.9 87 16 124/79 98 98.9 Laboratory Tests Test 06/01/25 19:47 White Blood Count 9.2 10^3/uL (4.4-10.8) Medications Medications Dose Ordered Sig/Marina Route Start Time Stop Time Status Last Admin Dose Admin Morphine Sulfate 4 mg ONCE ONCE IV 06/01/25 19:45 06/01/25 19:46 DC 06/01/25 20:36 Ondansetron HCl 4 mg ONCE ONCE IV 06/01/25 19:45 06/01/25 19:46 DC 06/01/25 20:37 Departure 1 Departure Time of Disposition: 20:47 Impression: Primary Impression: Intractable abdominal pain Additional Impression: Acute cholecystitis Disposition: ADMITTED INPATIENT Admit to: Med Surg Condition: Fair Critical Care Note Critical Care Time?: No Stability Stability form required: Yes Unstable for transfer: ED Physician Assesment (Clinical assesment) Heart Score Heart Score: Heart Score Response (Comments) Value History N/A 0 EKG N/A 0 Age N/A 0 Risk Factors N/A 0 Troponin N/A 0 Total 0 I personally scribed for ANDREA OSORIO MD ([email or web address]) on 06/01/25 at 20:41. Electronically submitted by Doris Moise ([employer] ANDREA OSORIO MD Jun 01, 2025 19:44
[2025-06-01 20:01] LABS: Hematocrit 44.5 % (36.0-46.0); Hemoglobin 14.9 g/dL (12.2-16.2); Mean Corpuscular Hemoglobin 27.0 pg (28.0-32.0); Mean Corpuscular Volume 80.5 fL (80.0-100.0); Nucleated Red Blood Cells % 0.1 %
--- NOTE | 2025-06-01 20:16 | DVH ---
EXAM: US GALLBLADDER CLINICAL HISTORY: pain TECHNIQUE: Grayscale and limited color flow doppler ultrasound of the right upper quadrant is perfor med. COMPARISON: None Findings: Liver measures 15.2 cm in length with normal echotexture and contour. No evidence of focal hepatic le sions or intra- or extrahepatic ductal dilatation. Common bile duct measures 0.4 cm in diameter. Norm al hepatopedal flow noted within the portal vein. No perihepatic free fluid is noted. Gallbladder wall thickness measuring 0.3 cm. There is shadowing calculi and biliary sludge. No evide nce of pericholecystic fluid. Positive sonographic Whittaker's sign. Pancreas not well-visualized due to overlying bowel gas. Right kidney measures 10.1 cm with normal contours, echotexture and cortical thickness. No evidence o f hydronephrosis, calculi, cystic or solid renal lesions. Partially visualized inferior vena cava unremarkable. Impression: 1. Cholelithiasis with mild gallbladder wall thickening and positive sonographic whittaker's sign is sug gestive of acute cholecystitis. If further confirmation is needed, recommend a nuclear medicine hepat obiliary scan for further evaluation.
[2025-06-01 20:19] LABS: Alanine Aminotransferase 27 U/L (7-40); Albumin 4.5 g/dL (3.2-4.8); Anion Gap 9 (5-15); BUN/Creatinine Ratio 18.9 (10.0-20.0); Bilirubin, Total 0.5 mg/dL (0.2-1.0); Blood Urea Nitrogen 10 mg/dL (9-23); Calcium 9.2 mg/dL (8.7-10.4); Carbon Dioxide 25 mmol/L (20-31); Chloride 106 mmol/L (98-107); Lipase 38 U/L (12-53); Potassium 3.6 mmol/L (3.5-5.1); Sodium 140 mmol/L (136-145); Total Protein 6.9 g/dL (5.7-8.2)
[2025-06-01] MEDS: MORPHINE SULFATE 4 MG/ML SYR/VIAL IV ONE (20:36)
[2025-06-01] MEDS: ONDANSETRON HCL 4 MG/2 ML VIAL IV ONE (20:37)
[2025-06-01 20:58] LABS: Alkaline Phosphatase 135 U/L (46-116); Glucose 110 mg/dL (74-106)
[2025-06-01] MEDS: SODIUM CHLORIDE 0.9% 1,000 ML IV SCH (22:30)
[2025-06-01] MEDS ORDERED: cefTRIAXone 1GM/50ML D5W 50 ML IV ONE (22:45)
--- NOTE | 2025-06-01 23:00 | DVHHPRES ---
History of Present Illness Resident Creating Document: SOFIYA GREENE RESIDENT History of Present Illness 24-year-old female comes to the ER following 2 weeks after delivery due to bilateral flank pain, rating 10/10, associated with shaking and chills. The pain was sudden in onset, no aggravating or relieving factor noted. The patient denies any associated fever or vomiting with the pain. She denies any chest pain, shortness of breath, urinary symptoms or any other complaints at this time. Past medical history: History of diet controlled gestational diabetes mellitus Past surgical history: None Menstrual history: Regular, 28 day cycle membership assistant: P 2 (NVDs) Allergies: Watermelon, pineapple, avocados, bananas Smoking: Never Drug abuse: Never Alcohol: Social drinker, 1 of 2 shots, last drink was 2 years ago Code status: Full code PCP: None, membership assistant: Dr. Lennon Review of Systems Gastrointestinal: Abdominal Pain Allergies: Coded Allergies: Pineapple (Verified Allergy, Intermediate, 01/10/24) Avocado (Verified Allergy, Mild, 01/10/24) [place] (Verified Allergy, Mild, 01/10/24) Banana (Verified Allergy, Unknown, 01/10/24) Uncoded Allergies: watermelon (Allergy, Mild, 01/10/24) Medications Current Medications Medications Dose Ordered Sig/Marina Route Start Time Stop Time Status Last Admin Dose Admin Sodium Chloride 10 ml Q8HR IV 06/02/25 06:00 Sodium Chloride 1,000 ml @ 120 mls/hr Q8H20M IV 06/01/25 22:30 Exam Vital Signs Vital Signs Date Time Temp Pulse Resp B/P (MAP) Pulse Ox O2 Delivery O2 Flow Rate FiO2 06/01/25 20:41 69 18 96 Room Air 06/01/25 20:41 119/70 (86) 06/01/25 19:39 98.9 98.9 Exam Pt is lying on bed General Appearance: Alert, Oriented X3, Cooperative, Mild distress HEENT: Atraumatic, Mucous membranes moist/pink Respiratory: Clear to auscultation, Normal air movement, No added sounds Cardiovascular: Regular rate, Normal S1, Normal S2, No murmurs Abdominal/ : Active bowel sounds, Soft, no distention, right upper quadrant tenderness Extremities: No edema, Normal pulses, No tenderness/swelling Skin: No Significant rash, except past surgical scars Neuro: Normal speech, sensorimotor deficits none Psych/Mental Status: Mental status NL, Mood NL Nurse was there as paralegal legal secretary during examination Labs/Xrays Labs Test 06/01/25 19:47 Range/Units White Blood Count 9.2 4.4-10.8 10^3/uL Red Blood Count 5.53 H 4.0-5.20 10^6/uL Hemoglobin 14.9 12.2-16.2 g/dL Hematocrit 44.5 36.0-46.0 % Mean Corpuscular Volume 80.5 80.0-100.0 fL Mean Corpuscular Hemoglobin 27.0 L 28.0-32.0 pg Mean Corpuscular Hemoglobin Concent 33.6 32.0-36.0 g/dL Red Cell Distribution Width 15.0 H 11.8-14.3 % Platelet Count 243 140-450 10^3/uL Mean Platelet Volume 7.9 6.9-10.8 fL Neutrophils (%) (Auto) 69.9 37.0-80.0 % Lymphocytes (%) (Auto) 22.5 10.0-50.0 % Monocytes (%) (Auto) 4.6 0.0-12.0 % Eosinophils (%) (Auto) 2.3 0.0-7.0 % Basophils (%) (Auto) 0.7 0.0-2.0 % Neutrophils # (Auto) 6.4 1.6-8.6 10 ^3/uL Lymphocytes # (Auto) 2.1 0.4-5.4 10 ^3/uL Monocytes # (Auto) 0.4 0-1.3 10 ^3/uL Eosinophils # (Auto) 0.2 0-0.8 10 ^3/uL Basophils # (Auto) 0.1 0-0.2 10 ^3/uL Nucleated Red Blood Cells 0.1 % Sodium Level 140 136-145 mmol/L Potassium Level 3.6 3.5-5.1 mmol/L Chloride Level 106 98-107 mmol/L Carbon Dioxide Level 25 20-31 mmol/L Anion Gap 9 5-15 Blood Urea Nitrogen 10 9-23 mg/dL Creatinine 0.53 L 0.550-1.02 mg/dL Glomerular Filtration Rate Calc 132 >90 mL/min BUN/Creatinine Ratio 18.9 10.0-20.0 Serum Glucose 110 H 74-106 mg/dL Calcium Level 9.2 8.7-10.4 mg/dL Total Bilirubin 0.5 0.2-1.0 mg/dL Aspartate Amino Transferase (AST) 67 H 13-40 U/L Alanine Aminotransferase (ALT) 27 7-40 U/L Alkaline Phosphatase 135 H 46-116 U/L Total Protein 6.9 5.7-8.2 g/dL Albumin 4.5 3.2-4.8 g/dL Lipase 38 12-53 U/L SEPSIS Sepsis Screen Date sepsis recognized/suspect: Jun 01, 2025 Time Sepsis recognized/suspect: 1941 Recent Procedure: No On Antibiotic Therapy: No Respiratory Rate >20: No Heart Rate >90: No Temp<36 C (96.8 F) or >38.3 C: No SBP <90 or MAP <65 mmHG: No New Acute Mental Status Change: No Is the patient on CPAP, BIPAP,: No Physician Orders Urinalysis (06/01/25 19:38) Heplock Iv (06/01/25 19:38) Gallbladder (06/01/25 19:38) Admit (06/01/25 22:26) Allergies (06/01/25 22:26) Code Status (06/01/25 22:26) Sodium Chloride Lock (Saline Lock Ns) (06/02/25 06:00) Sodium Chloride 0.9% (06/01/25 22:30) Complete Blood Count (06/02/25 04:00) Comprehensive Metabolic Panel (06/02/25 04:00) Npo (Nothing By Mouth) Diet (06/02/25 Breakfast) Notify Md Of Changes From Base (06/01/25 22:26) Ceftriaxone 1gm/50ml D5w (Rocephin) (06/01/25 22:45) Lipase (06/01/25 22:37) * Surgical Consult (06/01/25 ) Vital Signs Date Time Temp Pulse Resp B/P (MAP) Pulse Ox O2 Delivery O2 Flow Rate FiO2 06/01/25 20:41 69 18 96 Room Air 06/01/25 20:41 69 18 119/70 (86) 96 06/01/25 20:36 69 16 119/70 06/01/25 19:39 98.9 87 16 124/79 98 98.9 Laboratory Tests Test 06/01/25 19:47 White Blood Count 9.2 10^3/uL (4.4-10.8) Medications Medications Dose Ordered Sig/Marina Route Start Time Stop Time Status Last Admin Dose Admin Morphine Sulfate 4 mg ONCE ONCE IV 06/01/25 19:45 06/01/25 19:46 DC 06/01/25 20:36 4 MG Ondansetron HCl 4 mg ONCE ONCE IV 06/01/25 19:45 06/01/25 19:46 DC 06/01/25 20:37 4 MG Assessment/Plan Assessment/Plan Abdominal pain due to acute cholecystitis/acute pancreatitis/UTI -NPO -IV fluid normal saline -ondansetron -ceftriaxone -morphine held due to breast-feeding status -gallbladder ultrasound: Cholelithiasis with acute cholecystitis -surgery consult done -lipase and urinalysis ordered, pending results History of GDM: Monitor blood glucose and diabetic diet GI prophylaxis: Pantoprazole DVT prophylaxis: Patient is ambulatory,not indicated Diet: Diabetic Goals of care discussed with the patient for more than 27 minutes: Full code status Case discussed with Dr. Jean , patient and RN Plan discussed with: Patient, Other (RN) My Orders Orders - SOFIYA GREENE Procedure Category Date Status Time Admit ADMIT 06/01/25 Transmitted 22:26 Allergies SAHARA 06/01/25 In Process 22:26 Code Status CODE 06/01/25 Transmitted 22:26 Sodium Chloride Lock PHA 06/02/25 In Process (Saline Lock Ns) 06:00 Sodium Chloride 0.9% PHA 06/01/25 In Process 22:30 Complete Blood Count LAB 06/02/25 Verified 04:00 Comprehensive LAB 06/02/25 Verified Metabolic Panel 04:00 Npo (Nothing By DIET 06/02/25 Transmitted Mouth) Diet Breakfast Notify Of Changes SAHARA 06/01/25 In Process From Base 22:26 Ceftriaxone 1gm/50ml PHA 06/01/25 In Process D5w (Rocephin) 22:45 Lipase LAB 06/01/25 Logged 22:37 * Surgical Consult CONS 06/01/25 Transmitted SOFIYA GREENE Jun 01, 2025 23:00
[2025-06-01] MEDS: cefTRIAXone 1GM/50ML D5W 50 ML IV ONE (23:05)
[2025-06-01] MEDS: PANTOPRAZOLE 40 MG/10 ML VIAL INJ IV ONE (23:06)
[2025-06-01 23:59] LABS: Urine Protein, UAD Negative (Negative)
[2025-06-02] VITALS (8 sets, daily range): BP systolic 104–127; BP diastolic 55–81; PULSE 54–64; RESP 14–18; TEMP 97.3–99.2; O2SAT 95–99
[2025-06-02 05:24] LABS: Hematocrit 41.7 % (36.0-46.0); Hemoglobin 13.9 g/dL (12.2-16.2); Mean Corpuscular Hemoglobin 26.6 pg (28.0-32.0); Mean Corpuscular Volume 79.6 fL (80.0-100.0); Nucleated Red Blood Cells % 0.3 %
[2025-06-02] MEDS: SODIUM CHLOR 0.9% PF (SALINE LOCK) 10ML VIAL/SYR IV SCH (05:25)
[2025-06-02 05:39] LABS: Albumin 4.3 g/dL (3.2-4.8); Anion Gap 10 (5-15); BUN/Creatinine Ratio 20.9 (10.0-20.0); Calcium 8.9 mg/dL (8.7-10.4); Carbon Dioxide 23 mmol/L (20-31); Chloride 107 mmol/L (98-107); Potassium 3.6 mmol/L (3.5-5.1); Sodium 140 mmol/L (136-145); Total Protein 6.5 g/dL (5.7-8.2)
[2025-06-02 05:58] LABS: Alanine Aminotransferase 217 U/L (7-40); Alkaline Phosphatase 215 U/L (46-116); Bilirubin, Total 1.6 mg/dL (0.2-1.0); Blood Urea Nitrogen 9 mg/dL (9-23); Glucose 111 mg/dL (74-106)
[2025-06-02] MEDS: PANTOPRAZOLE 40 MG/10 ML VIAL INJ IV SCH (08:47)
[2025-06-02] MEDS: KETOROLAC TROMETH 30 MG/ML 1ML VIAL IV PRN (11:37)
[2025-06-02 12:12] LABS: Alanine Aminotransferase 361 U/L (7-40); Albumin 4.5 g/dL (3.2-4.8); Alkaline Phosphatase 279 U/L (46-116); Anion Gap 10 (5-15); BUN/Creatinine Ratio 15.4 (10.0-20.0); Bilirubin, Total 2.4 mg/dL (0.2-1.0); Blood Urea Nitrogen 8 mg/dL (9-23); Calcium 9.2 mg/dL (8.7-10.4); Carbon Dioxide 24 mmol/L (20-31); Chloride 109 mmol/L (98-107); Glucose 85 mg/dL (74-106); Potassium 3.5 mmol/L (3.5-5.1); Sodium 143 mmol/L (136-145); Total Protein 6.6 g/dL (5.7-8.2)
--- NOTE | 2025-06-02 12:53 | DVH ---
MRI MRCP MRI HISTORY: choledocholithiasis COMPARISON: 06/01/25 PROCEDURE: Multiplanar multisequence MRI images were obtained of the abdomen without intravenous cont rast Additional MIPS were obtained of the biliary system. FINDINGS: Bile ducts: -Intrahepatic ducts: Non-dilated. -Extrahepatic ducts: Non-dilated. -Common bile duct: Non-dilated. -Filling defects: 1-2 filling defects -Stricture: None. Gallbladder: Multiple gallstones. Pancreas: Pancreatic duct: No ductal dilatation. Lesions: None. Liver: Signal intensity: Homogenous. Contour: Smooth. Size: Normal. Lesions: No focal liver lesion. ADDITIONAL FINDINGS: Lung base: Normal. Pancreas: Normal. Spleen:Normal. Bowel: Normal. Adrenal glands:Normal. Kidneys and ureters:Normal. Lymph nodes:Normal. Peritoneum:Normal. Vessels: Normal. Abdominal wall: Normal. Bone: No aggressive bone lesions IMPRESSION: Cholelithiasis with choledocholithiasis.
--- NOTE | 2025-06-02 18:22 | DVHDSRES ---
Discharge Summary Date of Admission Resident Creating Document: CARLO CASE RESIDENT Jun 01, 2025 at 22:26 Date of Discharge: Jun 02, 2025 Admitting Diagnosis Acute Cholecystitis Wounds: No wounds Labs/Diagnostic Data: Laboratory Results Test 06/02/25 11:30 06/02/25 05:20 06/02/25 04:20 06/01/25 23:10 Sodium Level 143 mmol/L (136-145) Potassium Level 3.5 mmol/L (3.5-5.1) Chloride Level 109 mmol/L (98-107) Carbon Dioxide Level 24 mmol/L (20-31) Anion Gap 10 (5-15) Blood Urea Nitrogen 8 mg/dL (9-23) Creatinine 0.52 mg/dL (0.550-1.02) Glomerular Filtration Rate Calc 133 mL/min (>90) BUN/Creatinine Ratio 15.4 (10.0-20.0) Serum Glucose 85 mg/dL (74-106) Calcium Level 9.2 mg/dL (8.7-10.4) Total Bilirubin 2.4 mg/dL (0.2-1.0) Aspartate Amino Transferase (AST) 578 U/L (13-40) Alanine Aminotransferase (ALT) 361 U/L (7-40) Alkaline Phosphatase 279 U/L (46-116) Total Protein 6.6 g/dL (5.7-8.2) Albumin 4.5 g/dL (3.2-4.8) Lipase 35 U/L (12-53) White Blood Count 6.1 10^3/uL (4.4-10.8) Red Blood Count 5.24 10^6/uL (4.0-5.20) Hemoglobin 13.9 g/dL (12.2-16.2) Hematocrit 41.7 % (36.0-46.0) Mean Corpuscular Volume 79.6 fL (80.0-100.0) Mean Corpuscular Hemoglobin 26.6 pg (28.0-32.0) Mean Corpuscular Hemoglobin Concent 33.4 g/dL (32.0-36.0) Red Cell Distribution Width 14.9 % (11.8-14.3) Platelet Count 249 10^3/uL (140-450) Mean Platelet Volume 8.3 fL (6.9-10.8) Neutrophils (%) (Auto) 68.1 % (37.0-80.0) Lymphocytes (%) (Auto) 22.7 % (10.0-50.0) Monocytes (%) (Auto) 8.1 % (0.0-12.0) Eosinophils (%) (Auto) 0.5 % (0.0-7.0) Basophils (%) (Auto) 0.6 % (0.0-2.0) Neutrophils # (Auto) 4.1 10 ^3/uL (1.6-8.6) Lymphocytes # (Auto) 1.4 10 ^3/uL (0.4-5.4) Monocytes # (Auto) 0.5 10 ^3/uL (0-1.3) Eosinophils # (Auto) 0 10 ^3/uL (0-0.8) Basophils # (Auto) 0 10 ^3/uL (0-0.2) Nucleated Red Blood Cells 0.3 % Urine Color Yellow (Yellow) Urine Clarity Clear (Clear) Urine pH 5.5 (5.0-9.0) Urine Specific [place] 1.025 (1.001-1.035) Urine Protein Negative (Negative) Urine Ketones Negative (Negative) Urine Blood 1+ /uL (Negative) Urine Nitrite Negative (Negative) Urine Bilirubin Negative (Negative) Urine Urobilinogen 6 mg/dL (Negative) Urine Leukocyte Esterase Negative /uL (Negative) Urine RBC 11 /hpf (0 - 4) Urine Microscopic WBC 9 /HPF (0-5) Urine Squamous Epithelial Cells Few /hpf (<5) Urine Bacteria None seen /hpf (None Seen) Urine Mucus Few (None Seen) Urine Glucose Normal mg/dL (Normal) Other Laboratory Tests 06/02/25 11:30 06/02/25 04:20 Brief Hx & Hospital Course: Patient is a 24-year-old female (), who is currently 12 days , with prior medical history of gestational diabetes mellitus in her most recent who presented to the ED with chief complaint of abdominal pain. Patient refers sudden onset of bilateral flank pain described as sharp, nonradiating, 10/10 intensity, with no aggravating nor relieving factors, associated with weakness and diaphoresis. She states that 2 days prior to presentation she had 2 intermittent episode similar pain which resolved their own, persistence of symptoms prompted her family to call EMS. Patient denied fever, nausea, vomiting, diarrhea, dysuria, hematuria, chest pain, palpitations, and other symptoms. On evaluation in the ED, initial labs showed WBC within normal limits, chemistry panel within normal limit, 0.5, AST 67, ALT 27, and ALP 135. Gallbladder ultrasound shows cholelithiasis with gallbladder wall thickening and positive sonographic Whittaker sign suggestive of acute cholecystitis. Patient was admitted, surgery was consulted, and she was started on IV analgesics and antibiotics. Follow-up labs were significant for a bilirubin 1.6, AST 415, ALT 217, ALP 215. MRCP was ordered which showed cholelithiasis with choledochoithiasis. Patient requires transfer to higher level of care for ERCP. She will be transferred to [facility] for this procedure. Patient is currently stable and pain is well controlled. All findings were thoroughly explained to the patient and her , Nadeem, at bedside. All questions were answered, they state they understand and agree. Physical Exam: General: Patient is comfortable, alert, and oriented in person, place, and time. Follows commands. HEENT: Normocephalic, atraumatic, EOM intact, nonicteric sclera, pink conjunctiva, pink moist mucous membrane Respiratory/pulmonary: Bilateral chest expansion, Clear lungs bilaterally, vesicular murmurs present in almost all lung cruz, no associated crackles or wheezes. Cardiovascular: Normal RRR, normal S1 and S2 Abdomen: Abdomen nondistended, normal bowel sounds, soft, there is no pain to palpation in any of the abdominal quadrants, no palpable masses. Extremities: No deformaties, no peripheral edema, normal pulses Skin: No rashes or pruritus Neurological: Intact cranial nerves with no focal neurologic deficits Case discussed with Dr. Echevarria. Goals of care discussed the patient and her , Nadeem, for over 30 minutes. They state they understand and agree. Consults/Reason for consult Surgery was consulted due possible acute cholecystitis Operations or Procedures PROCEDURE(s): MRCP - MRCP MRI REASON: choledocholithiasis? ORDER NUMBER(s): [id number], ACCESSION NUMBER(s): [id number] MRI MRCP MRI HISTORY: choledocholithiasis COMPARISON: 06/01/25 PROCEDURE: Multiplanar multisequence MRI images were obtained of the abdomen without intravenous contrast Additional MIPS were obtained of the biliary system. FINDINGS: Bile ducts: -Intrahepatic ducts: Non-dilated. -Extrahepatic ducts: Non-dilated. -Common bile duct: Non-dilated. -Filling defects: 1-2 filling defects -Stricture: None. Gallbladder: Multiple gallstones. Pancreas: Pancreatic duct: No ductal dilatation. Lesions: None. Liver: Signal intensity: Homogenous. Contour: Smooth. Size: Normal. Lesions: No focal liver lesion. ADDITIONAL FINDINGS: Lung base: Normal. Pancreas: Normal. Spleen:Normal. Bowel: Normal. Adrenal glands:Normal. Kidneys and ureters:Normal. Lymph nodes:Normal. Peritoneum:Normal. Vessels: Normal. Abdominal wall: Normal. Bone: No aggressive bone lesions IMPRESSION: Cholelithiasis with choledocholithiasis. EXAM: US GALLBLADDER CLINICAL HISTORY: pain TECHNIQUE: Grayscale and limited color flow doppler ultrasound of the right upper quadrant is performed. COMPARISON: None Findings: Liver measures 15.2 cm in length with normal echotexture and contour. No evidence of focal hepatic lesions or intra- or extrahepatic ductal dilatation. Common bile duct measures 0.4 cm in diameter. Normal hepatopedal flow noted within the portal vein. No perihepatic free fluid is noted. Gallbladder wall thickness measuring 0.3 cm. There is shadowing calculi and biliary sludge. No evidence of pericholecystic fluid. Positive sonographic Whittaker's sign. Pancreas not well-visualized due to overlying bowel gas. Right kidney measures 10.1 cm with normal contours, echotexture and cortical thickness. No evidence of hydronephrosis, calculi, cystic or solid renal lesions. Partially visualized inferior vena cava unremarkable. Impression: 1. Cholelithiasis with mild gallbladder wall thickening and positive sonographic whittaker's sign is suggestive of acute cholecystitis. If further confirmation is needed, recommend a nuclear medicine hepatobiliary scan for further evaluation. Condition at Discharge: Stable Final Diagnosis/Problems List Acute intractable abdominal pain due to choledocholithiasis Cholelithiasis with acute cholecystitis History of Gestational Diabetes Pancreatitis ruled out UTI ruled out Discharge Disposition: Acute Care Facility Discharge Instruct/Medications Diet: See Comment Diet comment: NPO Activity: No Restrictions, As Tolerated Follow Up/Referral: Please follow up with PCP in 1-2 weeks Please follow up with metal hardener in 1-2 weeks Please follow up with GI in the outpatient clinic Medications: Per higher level of care Scheduled Cephalexin (Keflex Capsule), 500 MG PO Q6HR, (Reported) Miscellaneous Medications Vit W/ Ferrous Fumara (), 1 TAB OR, (Reported) Discharge Statement: "Patient was advised to return to the ER or call 911 if any headaches, dizziness, shortness of breath, chest pain, abdominal pain, bleeding, fevers, or worsening of medical condition. Patient was counseled about treatment plan, medications, possible side effects, patientverbalized understanding. All questions were answered to the best of my ability. This discharge took greater then 30 minutes in planning, reviewing documentation, counseling the patient, and discussing with other team members." ASSESSMENT ASSESSMENT Assessment Acute intractable abdominal pain due to choledocholithiasis and cholecystitis Date of Service: Jun 02, 2025 Billing Provider: GLORIA ECHEVARRIA MD Common Visit Codes: 78865-RAT/OBS DISCH DAY >30min CARLO CASE RESIDENT Jun 02, 2025 18:22 GLORIA ECHEVARRIA MD Jun 04, 2025 20:54
[2025-06-03] MEDS ORDERED: cefTRIAXone 1GM/50ML D5W 50 ML IV SCH (09:00)
== END 2025-06-02 22:19 | disposition short-term general hospital (02) | DRG 446 ==
LOC: ER 19:35 → EDBD 19:35 → EAST 22:23 → OVERFLOW 22:23 → EAST 06-02 16:12
PROVIDERS: ADMIT Internal Medicine Geriatric Medicine; ATTEND Emergency Medicine
DX: K80.62 Calculus of gallbladder and bile duct with acute cholecystitis without obstruction (principal); Z91.018 Allergy to other foods
CPT/HCPCS: 36415; 74181; 76705; 80053; 81001; 83690; 85025; 87081; 96365; 96366; 96367; 96376; G0378; J1885; J2405; J2470; J3490